=== PATIENT | male | born 1935 | race Caucasian/White ===

== ENCOUNTER 2020-01-10 16:12 | Emergency (ER) | payer MEDICARE, BC ==
--- NOTE | 2020-01-10 17:18 | CT ---
EXAMINATION TYPE: CT brain cspine wo con DATE OF EXAM: 01/10/2020 COMPARISON: None HISTORY: fell off ladder, trauma and pain CT DLP: 1419.2 mGycm Automated exposure control for dose reduction was used. TECHNIQUE: CT scan of the head and cervical spine are performed without contrast. FINDINGS: There is no acute intracranial hemorrhage, mass effect, or midline shift identified. The ventricles and sulci are within normal limits in size. The globes are intact. Cephalhematoma is not ed over the posterior parietal scalp. Cervical spine is visualized in its entirety from C1 through upper thoracic levels and demonstrates s atisfactory alignment without evidence of acute fracture or dislocation. Prevertebral soft tissue ap pears within normal limits. The C1-C2 articulation is unremarkable. There is multilevel facet arthro quinten change. Multilevel spondylosis is present, there is loss of disc height at intervertebral level s. Anterolisthesis grade 1 C4-5, C3-4. Mild multilevel foraminal encroachment is noted. Some inflamma tory change present in the ethmoid air cells, sphenoid sinus, maxillary sinuses. Posterior to the right thyroid gland on axial image 84 there is a 1.4 x 2 cm soft tissue nodule IMPRESSION: 1. There is no acute fracture or dislocation evident in the cervical spine. 2. No acute intracranial hemorrhage, mass effect, or midline shift is seen. 3. soft tissue nodule may be related to thyroid.
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
[2020-01-10 18:02] VITALS: BP 157/91; PULSE 82; RESP 16; TEMP 98
== END 2020-01-10 18:01 | disposition home or self-care (01) ==
LOC: EC 16:12
DX: S06.0X9A Concussion with loss of consciousness of unspecified duration, initial encounter (principal); S00.03XA Contusion of scalp, initial encounter; Z88.0 Allergy status to penicillin; W11.XXXA Fall on and from ladder, initial encounter; Y93.89 Activity, other specified; Y92.89 Other specified places as the place of occurrence of the external cause
CPT/HCPCS: 70450; 72125; 99284

== ENCOUNTER 2023-11-17 18:38 | Emergency (ER) | payer MEDICARE ==
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
[2023-11-17 20:01] VITALS: BP 127/80; PULSE 81; RESP 18; TEMP 98.2
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
== END 2023-11-17 21:00 | disposition left against medical advice (07) ==
LOC: EC 18:38
DX: M79.642 Pain in left hand (principal); Z88.0 Allergy status to penicillin; Z53.29 Procedure and treatment not carried out because of patient's decision for other reasons; V89.2XXA Person injured in unspecified motor-vehicle accident, traffic, initial encounter; Y92.410 Unspecified street and highway as the place of occurrence of the external cause
CPT/HCPCS: 99283